=== PATIENT | male | born 1965 | race Caucasian/White ===

== ENCOUNTER 2019-11-16 00:31 | Emergency (ER) | payer MEDICAID, SELFPAY ==
[~2019-11-16] VITALS: Ht 170.2 cm; Wt 68.0 kg
--- NOTE | 2019-11-16 00:31 | NUR ---
PT TAKEN TO BED 7
[2019-11-16 00:38] VITALS: BP 128/79
--- NOTE | 2019-11-16 00:45 | NUR ---
ERMD AT BEDSIDE.
[2019-11-16] MEDS ORDERED: KETOROLAC 15 MG/ML VIAL IVP ONE (00:50)
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
[2019-11-16] MEDS ORDERED: MORPHINE SULFATE 4 MG/ML SYR IVP ONE ×3 (01:20→05:15)
[2019-11-16] MEDS ORDERED: ONDANSETRON 4 MG/2 ML VIAL IVP ONE (01:20)
[2019-11-16] MEDS ORDERED: BACITRACIN OINT 500 UNITS/GM PKT TP ONE (01:25)
--- NOTE | 2019-11-16 01:35 | NUR ---
spoke to pt's girlfriend, yina, to update her on pt's status. advised pt waiting to go to ct scan.
--- NOTE | 2019-11-16 01:40 | NUR ---
BACK ABRASIONS CLEANED AND DRESSED BY MARYANN APONTE. PT TRANSPORTED TO CT VIA [facility]
--- NOTE | 2019-11-16 01:41 | NUR ---
PT TAKEN TO CT
--- NOTE | 2019-11-16 02:02 | NUR ---
PT RETURN FROM CT
--- NOTE | 2019-11-16 02:10 | NUR ---
PT STATES LONG HE DOESN'T MOVE HE'S OK, BUT WITH MOVEMENT AND DEEP INSPITRATION STILL HAS QUITE A LOT OF PAIN.
[2019-11-16] MEDS ORDERED: ALUMINUM HYD/MAG/SIMETHICONE 30 ML UDC PO ONE (03:15)
--- NOTE | 2019-11-16 03:51 | NUR ---
COVID SWAB COLLECTED. PT TOLERATED WELL.
--- NOTE | 2019-11-16 03:53 | NUR ---
PT SIGNED CONSENT FOR TRANSFER.
--- NOTE | 2019-11-16 03:57 | NUR ---
SPOKE TO PT'S FAMILY, UPDATED ON STATUS AND ADVISED THAT BE WILL BE NEEDING TO BE TRANSFERRED TO [facility] FOR HIGHER LEVEL OF CARE DUE TO NEED FOR CARE OF A NEUROLOGIST BECAUSE OF THE FRACTURES AND THE PRESSURE BEING PLACED ON PT'S SPINE AND SPINAL COLUMN. CONSTENT FOR TRANSFER WAS SIGNED BY PATIENT. CURRENTLY WAITING FOR ACCEPTING HOSPITAL.
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
--- NOTE | 2019-11-16 04:35 | NUR ---
MD BYNUM AT BEDSIDE SPEAKING WITH PATIENT REGARDING TRANSFER
--- NOTE | 2019-11-16 04:49 | NUR ---
DR BYNUM BROUGHT PT'S GIRLFRIEND BACK TO DISCUSS PLAN OF CARE FOR PT TRANSFER. ALL AT BEDSIDE
--- NOTE | 2019-11-16 04:50 | NUR ---
SPOKE TO PATRICIA FLORES, ACCEPTING NURSE FOR PT. REPORT GIVEN ON PATIENT. ACCEPTING MD, DR BENAVIDEZ. NUMBER CALLED [phone]
[2019-11-16] MEDS ORDERED: NACL 0.9% 1,000 ML IV ONE (05:25)
--- NOTE | 2019-11-16 05:29 | NUR ---
[facility] TRANSPORT AT BEDSIDE
--- NOTE | 2019-11-16 05:38 | NUR ---
PATIENT TAKEN BY [facility] TRANSPORT TO [facility] ER
[2019-11-16 05:42] VITALS: BP 108/75
--- NOTE | 2019-11-16 05:43 | NUR ---
Patient to be transferred to [facility] ER. Is being transferred due to HIGHER LEVEL OF CARE. Receiving facility has accepting physician and available space. ER physician has signed transfer form. Patient or responsible libertarian has agreed to transfer and signed form. Patient belongings inventoried and will be sent with patient. Copy of nursing notes, lab reports, EKG, Physicians Orders and X-rays to be sent with patient. Report called to PATRICIA FLORES at receiving facility. [facility] ambulance service has been called for transfer. AMBULANCE HERE NOW FOR TRANSFER.
== END 2019-11-16 05:38 | disposition short-term general hospital (02) ==
LOC: MED 00:31
DX: S22.069A Unspecified fracture of T7-T8 vertebra, initial encounter for closed fracture (principal); S22.059A Unspecified fracture of T5-T6 vertebra, initial encounter for closed fracture; V29.9XXA Motorcycle rider (driver) (passenger) injured in unspecified traffic accident, initial encounter; Y93.89 Activity, other specified; Y92.89 Other specified places as the place of occurrence of the external cause; Y99.8 Other external cause status
CPT/HCPCS: 71250; 72128; 72131; 74176; 87426; 96374; 96375; 96376; 99285; J1885; J2270; J2405; J7030